=== PATIENT | male | born 1985 | race Caucasian/White ===

== ENCOUNTER 2020-02-20 15:58 | Outpatient (REF) | payer BC, SELFPAY | END 2020-02-20 15:59 | disposition home or self-care (01) | LOC: HO.LAB 15:58 | PROVIDERS: Visit Provider Internal Medicine | DX: Z20.828 Contact with and (suspected) exposure to other viral communicable diseases (principal) | CPT/HCPCS: U0003 ==

== ENCOUNTER 2022-01-07 20:32 | Emergency (ER) | payer BC, SELFPAY ==
--- NOTE | ~2022-01-07 | XR_ITS ---
EXAMINATION: XR CHEST CLINICAL INFORMATION: Short of breath COMPARISON: 05/16/2017 TECHNIQUE: Frontal view of the chest was obtained. FINDINGS: The lungs are well expanded. There is no focal consolidation, edema, or effusion. No pneumothorax. The cardiomediastinal silhouette is within normal limits. No acute osseous abnormality. XR/XR chest 1V IMPRESSION: Clear lungs.
[2022-01-07 20:37] VITALS: BP 123/60; PULSE 95; RESP 16; TEMP 36.6; O2SAT 95; BMI 26.7
[2022-01-07 21:22] LABS: COVID-19 Test Negative (Negative); IDNOW Serial# 55D5AD1C
[2022-01-07 22:47] VITALS: O2SAT 96
--- NOTE | 2022-01-07 22:48 | PC.NURSE ---
Pt complains of increased SOB. inspiratory wheezing present in the PHAN lobe and Lower lobe on auscultation. Stat at 96 Z% on RM air.
[2022-01-08 00:10] VITALS: BP 108/72; PULSE 93; RESP 16; TEMP 37.1; O2SAT 96
--- NOTE | 2022-01-08 00:13 | ED.ASTHMA ---
HPI - Asthma General Chief Complaint: Asthma Stated Complaint: asthma Time Seen by Provider: 01/07/22 23:04 History of Present Illness HPI Narrative: Patient is a 36-year-old male presents today with having wheezing shortness of breath. Patient is a smoker. He also works in a beauty culturist apprentice job. Complaining of using an albuterol inhaler with no relief. Patient denies any fever chills. He is vaccinated for COVID. Positive coughing. Positive wheezing. Never been hospitalized. Come to the ED maybe once per year. Related Data Previous Rx's Medication Instructions Recorded prednisone 20 mg tablet 40 mg PO DAILY #10 tabs 01/08/22 Allergies Allergy/AdvReac Type Severity Reaction Status Date / Time No Known Allergies Allergy Unverified 01/08/20 17:24 Review of Systems Review of Systems: Positive shortness of breath Positive wheezing Yes all other systems are reviewed and are negative [facility] Past Medical History Attestation statement: The following information was validated with the patient. Social History Social History Advance Directives: No Physical Exam Vital Signs: Vital Signs: Last Vital Signs Temp 98.8 F 01/08/22 00:10 Pulse 93 01/08/22 00:10 Resp 16 01/08/22 00:10 BP 108/72 01/08/22 00:10 Pulse Ox 96 01/08/22 00:10 O2 Del Method 01/08/22 00:10 BMI result Body Mass Index 26.7 Appearance: Alert. Oriented X3. No acute distress. Eyes: Pupils equal, round and reactive to light. ENT: Pharynx normal. Neck: Normal inspection. Neck supple. No lymph nodes noted. No crepitus CVS: Normal heart rate and rhythm. Pulses normal. Normal S1 and S2 Respiratory: No respiratory distress. Positive expiratory wheeze bilaterally Abdomen: Soft and nontender. No rigidity. No distention. good BS x4 Skin: Skin warm and dry. Normal skin color. Normal skin turgor. Extremities: No lower extremity edema. Neurovascular intact to all extremities. No Lacerations. No Rash Neuro: Oriented X 3. No motor deficit. No sensory deficit. Moving all extermities. No slurred speech MDM - Asthma MDM Narrative Medical decision making narrative: Chest x-ray negative for pneumonia. No pneumothorax. No congestive heart failure. Patient's O2 sats 96% on room air. On exam there is positive wheezing expiratory noted. We will go ahead and give a treatment. Steroids given. After neb treatment symptomatically improved. Patient to be discharged home on steroid already have an inhaler. O2 sats 96% on room air lungs are clear only minimal wheezing at this point. Medical Records Attestation: I reviewed the patient's medical records. Lab Data Attestation: I reviewed the patient's lab results. Labs: Lab Results 01/07/22 Range/Units 20:57 COVID-19 (JENNIE) Negative (Negative) COVID-19 Clin Com See Note Discharge Plan Discharge Clinical Impression: Asthma with acute exacerbation Patient Disposition: Home, Self-Care Instructions: Asthma (ED) Prescriptions: New prednisone 20 mg tablet 40 mg PO DAILY Qty: 10 0RF Referrals: [facility] [Provider Group]
[2022-01-08] MEDS: Albuterol/Iprat 2.5/0.5MG 3 ML AMPUL.NEB INHALE (00:37)
[2022-01-08] MEDS: predniSONE 20 MG TABLET 60 MG PO (01:07)
== END 2022-01-08 01:08 | disposition home or self-care (01) ==
PROVIDERS: Emergency Provider Emergency Medicine Emergency Medical Services; PCP Obstetrics & Gynecology
DX: J45.901 Unspecified asthma with (acute) exacerbation (principal); R06.02 Shortness of breath; Z20.822 Contact with and (suspected) exposure to COVID-19
CPT/HCPCS: 71045; 87635; 99283